=== PATIENT | female | born 1985 | race Caucasian/White ===

== ENCOUNTER 2018-03-13 13:51 | Emergency (ER) | payer BC, OTHER ==
[2018-03-13] MEDS: SOD CHLORIDE 0.9% 1,000 ML IV (14:59)
[2018-03-13] MEDS: ONDANSETRON 4 MG INJ IV ×2 (14:59→15:35)
[2018-03-13] MEDS: morphine 4 MG/ML VIAL IV (15:00)
[2018-03-13 15:18] LABS: ADD MAN DIFF? NO
[2018-03-13 15:20] LABS: WHITE BLOOD COUNT 13.2 10^3/ul (4.8-10.8)
[2018-03-13 15:20] LABS: BASOPHILS % 0.2 % (0.0-2.0); EOSINOPHILS % 0.1 % (0.0-7.0); HEMATOCRIT 40.1 % (37.0-47.0); HEMOGLOBIN 13.1 g/dl (12.0-16.0); LYMPHOCYTES # 0.6 10^3/ul (0.8-2.9); LYMPHOCYTES % 4.9 % (15.0-51.0); MEAN CORPUSCULAR HEMOGLOBIN 28.9 pg (29.0-33.0); MEAN CORPUSCULAR HGB CONC 32.7 g/dl (32.0-37.0); MEAN CORPUSCULAR VOLUME 88.3 fl (82.0-101.0); MEAN PLATELET VOLUME 11.6 fl (7.4-10.4); MONOCYTE # 0.6 10^3/ul (0.3-0.9); MONOCYTES % 4.9 % (0.0-11.0); NEUTROPHIL # 11.8 10^3/ul (1.6-7.5); NEUTROPHILS % 89.5 % (39.0-77.0); PLATELET COUNT 218 10^3/UL (140-415); RED BLOOD COUNT 4.54 10^6/ul (4.20-5.40); RED CELL DISTRIBUTION WIDTH 16.8 % (11.5-14.5)
[2018-03-13 15:23] LABS: ADD UMIC NO; UR ASCORBIC ACID NEGATIVE (NEGATIVE); UR BILIRUBIN (Dip) NEGATIVE (NEGATIVE); UR BLOOD (Dip) NEGATIVE (NEGATIVE); UR CLARITY CLEAR (CLEAR); UR COLOR COLORLESS (YELLOW); UR GLUCOSE (Dip) NEGATIVE (NEGATIVE); UR KETONES (Dip) TRACE mg/dL (NEGATIVE); UR LEUKOCYTE ESTERASE (Dip) NEGATIVE Leu/ul (NEGATIVE); UR NITRITE (Dip) NEGATIVE (NEGATIVE); UR SPECIFIC GRAVITY (Dip) 1.001 (1.003-1.030); UR TOTAL PROTEIN (Dip) NEGATIVE (NEGATIVE); UR UROBILINOGEN (Dip) NEGATIVE (NEGATIVE)
[2018-03-13] MEDS: ACETAMINOPHEN 500 MG TAB PO (15:37)
[2018-03-13 15:38] LABS: ALANINE AMINOTRANSFERASE 59 IU/L (13-69); ALBUMIN 4.3 g/dl (3.3-4.9); ALBUMIN/GLOBULIN RATIO 1.26; ALKALINE PHOSPHATASE 87 IU/L (42-121); AMYLASE 46 U/L (11-123); ANION GAP 14 (8-16); ASPARTATE AMINO TRANSFERASE 55 IU/L (15-46); BLOOD UREA NITROGEN 7 mg/dl (7-20); CALCIUM 9.3 mg/dl (8.4-10.2); CARBON DIOXIDE 25 mmol/L (21-31); CHLORIDE 101 mmol/L (97-110); CREATININE 0.68 mg/dl (0.44-1.00); GLUCOSE 189 mg/dl (70-220); LIPASE 19 U/L (23-300); POTASSIUM 4.3 mmol/L (3.5-5.1); SODIUM 136 mmol/L (135-144); TOTAL PROTEIN 7.7 g/dl (6.1-8.1)
== END 2018-03-13 17:14 | disposition home or self-care (01) ==
LOC: FTE 13:51
DX: N83.201 Unspecified ovarian cyst, right side (principal); I10 Essential (primary) hypertension; E11.9 Type 2 diabetes mellitus without complications; E03.9 Hypothyroidism, unspecified; R10.2 Pelvic and perineal pain; Z79.4 Long term (current) use of insulin
CPT/HCPCS: 74176; 76830; 76856; 80053; 81003; 81025; 82150; 83690; 85025; 87086; 99285-25

== ENCOUNTER 2018-05-08 15:48 | Emergency (ER) | payer BC ==
[2018-05-08] MEDS: LORAZEPAM 2 MG INJ IV (16:46)
[2018-05-08 16:47] LABS: ADD MAN DIFF? NO
[2018-05-08 16:53] LABS: BASOPHIL # 0.1 10^3/ul (0.0-0.1); BASOPHILS % 0.4 % (0.0-2.0); EOSINOPHILS % 0.4 % (0.0-7.0); HEMATOCRIT 45.1 % (37.0-47.0); HEMOGLOBIN 14.9 g/dl (12.0-16.0); LYMPHOCYTES % 8.7 % (15.0-51.0); MEAN CORPUSCULAR VOLUME 90.7 fl (82.0-101.0); MONOCYTE # 0.5 10^3/ul (0.3-0.9); MONOCYTES % 4.9 % (0.0-11.0); NEUTROPHIL # 9.5 10^3/ul (1.6-7.5); NEUTROPHILS % 85.3 % (39.0-77.0); PLATELET COUNT 224 10^3/UL (140-415); RED BLOOD COUNT 4.97 10^6/ul (4.20-5.40); RED CELL DISTRIBUTION WIDTH 12.9 % (11.5-14.5)
[2018-05-08 16:53] LABS: WHITE BLOOD COUNT 11.1 10^3/ul (4.8-10.8)
[2018-05-08 16:55] LABS: ADD UMIC NO; UR ASCORBIC ACID NEGATIVE (NEGATIVE); UR BILIRUBIN (Dip) NEGATIVE (NEGATIVE); UR BLOOD (Dip) NEGATIVE (NEGATIVE); UR CLARITY CLEAR (CLEAR); UR COLOR COLORLESS (YELLOW); UR GLUCOSE (Dip) NEGATIVE (NEGATIVE); UR KETONES (Dip) 1+ mg/dL (NEGATIVE); UR LEUKOCYTE ESTERASE (Dip) NEGATIVE Leu/ul (NEGATIVE); UR NITRITE (Dip) NEGATIVE (NEGATIVE); UR SPECIFIC GRAVITY (Dip) 1.002 (1.003-1.030); UR TOTAL PROTEIN (Dip) NEGATIVE (NEGATIVE); UR UROBILINOGEN (Dip) NEGATIVE (NEGATIVE)
[2018-05-08] MEDS: SOD CHLORIDE 0.9% 500 ML IV (17:04)
[2018-05-08 17:09] LABS: ALANINE AMINOTRANSFERASE 16 IU/L (13-69); ALBUMIN 4.4 g/dl (3.3-4.9); ALBUMIN/GLOBULIN RATIO 1.22; ALKALINE PHOSPHATASE 78 IU/L (42-121); ANION GAP 16 (8-16); ASPARTATE AMINO TRANSFERASE 22 IU/L (15-46); BLOOD UREA NITROGEN 9 mg/dl (7-20); CALCIUM 9.7 mg/dl (8.4-10.2); CARBON DIOXIDE 25 mmol/L (21-31); CHLORIDE 103 mmol/L (97-110); CREATINE KINASE 34 IU/L (23-200); CREATININE 0.75 mg/dl (0.44-1.00); GLUCOSE 172 mg/dl (70-220); POTASSIUM 4.1 mmol/L (3.5-5.1); SODIUM 140 mmol/L (135-144)
[2018-05-08 17:15] LABS: AMPHETAMINE/METHAMPHETAMINE Negative (NEGATIVE); BARBITURATES Negative (NEGATIVE); BENZODIAZEPINES Negative (NEGATIVE); CANNABINOIDS Negative (NEGATIVE); COCAINE Negative (NEGATIVE); OPIATES Negative (NEGATIVE)
[2018-05-08 17:21] LABS: LACTIC ACID 2.9 mmol/L (0.5-2.0)
[2018-05-08 17:23] LABS: CK INDEX 0.6; CK-MB < 0.22 ng/ml (0.0-2.4); TROPONIN-I < 0.012 ng/ml (0.000-0.120)
[2018-05-08 18:02] LABS: FREE THYROXINE INDEX (Calc) 2.34 ug/ml (0.65-3.89); T3 UPTAKE 33.9 % (23.5-40.5); T4 (THYROXINE) 6.9 ug/dl (5.5-11.0)
[2018-05-08] MEDS: LORAZEPAM 1 MG TAB PO (19:18)
== END 2018-05-08 19:26 | disposition home or self-care (01) ==
LOC: FTE 15:48
DX: F41.9 Anxiety disorder, unspecified (principal); E11.9 Type 2 diabetes mellitus without complications; E03.9 Hypothyroidism, unspecified; I10 Essential (primary) hypertension; R42 Dizziness and giddiness; Z79.4 Long term (current) use of insulin
CPT/HCPCS: 70450; 80053; 80307; 81003; 81025; 82550; 82553; 82962; 83605; 84436; 84479; 84484; 85025; 87040; 93005; 96361; 96374; 99285-25